=== PATIENT | female | born 1960 | race Caucasian/White ===

== ENCOUNTER → 2020-05-03 | Emergency (ER) | payer BC, MEDICAID ==
[~2020-05-03] VITALS: Ht 167.6 cm; Wt 77.1 kg
[2020-05-03 20:24] LABS: Basophils # (auto) 0 10 ^3/uL (0-0.2); Basophils % (auto) 0.5 % (0.0-2.0); Eosinophils # (auto) 0 10 ^3/uL (0-0.8); Hematocrit 44.5 % (36.0-46.0); Hemoglobin 15.2 g/dL (12.2-16.2); Lymphocytes # (auto) 0.4 10 ^3/uL (0.4-5.4); Lymphocytes % (auto) 4.1 % (10.0-50.0); Mean Corpuscular Hemoglobin 33.4 pg (28.0-32.0); Mean Corpuscular Hgb Conc. 34.1 g/dL (32.0-36.0); Mean Corpuscular Volume 97.8 fL (80.0-100.0); Monocytes # (auto) 0.8 10 ^3/uL (0-1.3); Monocytes % (auto) 8.8 % (0.0-12.0); Neutrophils # (auto) 7.6 10 ^3/uL (1.6-8.6); Neutrophils % (auto) 86.6 % (37.0-80.0); Platelet Count (auto) 142 10^3/uL (140-450); Red Blood Cells 4.54 10^6/uL (4.0-5.20); Red Cell Distribution Width 12.7 % (11.8-14.3); White Blood Cell 8.8 10^3/uL (4.4-10.8)
[2020-05-03 20:38] LABS: Albumin 3.6 g/dL (3.4-5.0); Calcium 8.7 mg/dL (8.5-10.1)
[2020-05-03 20:40] LABS: BUN/Creatinine Ratio 12.7
[2020-05-03 20:43] LABS: Bilirubin, Total 1.1 mg/dL (0.2-1.0); Total Protein 7.7 g/dL (6.4-8.2)
[2020-05-04 01:28] LABS: Urine Bacteria FEW /hpf (None Seen); Urine Blood Negative /uL (Negative); Urine Specific Gravity 1.007 (1.001-1.035); Urine WBC <1 /hpf (0 - 5)
[2020-05-04 01:39] LABS: Alcohol, Urine < 3.0 mg/dL (0-10); Amphetamine Screen, Urine NEGATIVE (NEGATIVE); Barbiturate Scree,Urine NEGATIVE (NEGATIVE); Benzodiazephine Screen, Urine NEGATIVE (NEGATIVE); Cannabinoid Screen, Urine POSITIVE (NEGATIVE); Cocaine Screen, Urine NEGATIVE (NEGATIVE); Phencyclidine Screen, Urine NEGATIVE (NEGATIVE)
[2020-05-04 01:46] LABS: Opiate Scree,Urine NEGATIVE (NEGATIVE)
[2020-05-04 02:00] VITALS: BP 139/97
== END | disposition home or self-care (01) ==
LOC: ER 17:43 → EDUNIT# 17:43 → EDBD 17:43
DX: G40.89 Other seizures (principal); E87.6 Hypokalemia; F19.10 Other psychoactive substance abuse, uncomplicated; R41.0 Disorientation, unspecified; I10 Essential (primary) hypertension
CPT/HCPCS: 36415; 70450; 80053; 80307; 80320; 81001; 85025; 93005

== ENCOUNTER 2022-11-07 09:44 | Emergency (ER) | payer MEDICAID ==
[~2022-11-07] VITALS: Ht 160 cm; Wt 63.8 kg
[2022-11-07 11:01] VITALS: BP 103/71
[2022-11-07] MEDS ORDERED: KETOROLAC TROMETH 60MG/2ML VIAL IM ONE (11:15)
== END 2022-11-07 11:23 | disposition home or self-care (01) ==
LOC: ER 09:44
DX: M54.50 Low back pain, unspecified (principal); G89.29 Other chronic pain; I10 Essential (primary) hypertension; Z88.6 Allergy status to analgesic agent
CPT/HCPCS: 96372; 99283; J1885

== ENCOUNTER 2023-12-09 14:32 | Emergency (ER) | payer MEDICAID ==
[2023-12-09] MEDS: SODIUM CHLORIDE 0.9% 1,000 ML IVB ONE (15:03)
[2023-12-09] MEDS: LORazepam 2MG/ML-1ML VIAL IV ONE (15:03)
[2023-12-09 15:10] VITALS: PULSE 108; RESP 21; TEMP 97.4; O2SAT 92
[2023-12-09 15:12] LABS: Basophils # (auto) 0.2 10 ^3/uL (0-0.2); Basophils % (auto) 1.1 % (0.0-2.0); Eosinophils # (auto) 0.1 10 ^3/uL (0-0.8); Eosinophils % (auto) 0.4 % (0.0-7.0); Hematocrit 50.6 % (36.0-46.0); Hemoglobin 16.6 g/dL (12.2-16.2); Lymphocytes # (auto) 4.3 10 ^3/uL (0.4-5.4); Lymphocytes % (auto) 29.9 % (10.0-50.0); Mean Corpuscular Hemoglobin 32.4 pg (28.0-32.0); Mean Corpuscular Hgb Conc. 32.8 g/dL (32.0-36.0); Mean Corpuscular Volume 98.9 fL (80.0-100.0); Monocytes # (auto) 1.1 10 ^3/uL (0-1.3); Monocytes % (auto) 7.6 % (0.0-12.0); Neutrophils # (auto) 8.7 10 ^3/uL (1.6-8.6); Red Blood Cells 5.12 10^6/uL (4.0-5.20); Red Cell Distribution Width 13.2 % (11.8-14.3); White Blood Cell 14.2 10^3/uL (4.4-10.8)
[2023-12-09 15:26] LABS: Alanine Aminotransferase 31 U/L (7-40); Albumin 4.6 g/dL (3.2-4.8); Alkaline Phosphatase 83 U/L (46-116); Anion Gap 16 (5-15); Aspartate Aminotransferase 53 U/L (13-40); BUN/Creatinine Ratio 9.7 (10.0-20.0); Blood Urea Nitrogen 7 mg/dL (9-23); Calcium 8.8 mg/dL (8.5-10.1); Carbon Dioxide 20 mmol/L (20-30); Chloride 111 mmol/L (98-107); Glucose 110 mg/dL (74-106); Potassium 4.6 mmol/L (3.5-5.1); Sodium 147 mmol/L (136-145)
[2023-12-09 15:27] LABS: Bilirubin, Total 0.3 mg/dL (0.2-1.0); Total Protein 7.3 g/dL (5.7-8.2)
[2023-12-09 15:47] LABS: Blood Alcohol 474.5 mg/dL (<10)
[2023-12-09 17:51] LABS: Urine Bacteria MOD /hpf (None Seen); Urine Blood Negative /uL (Negative); Urine Clarity HAZY (Clear); Urine Color Yellow (Yellow); Urine Mucus FEW (None Seen); Urine Protein, UAD 1+ (Negative); Urine Urobilinogen Normal (Negative); Urine WBC 44 /hpf (0 - 5); Urine pH 5.5 (5.0-8.0)
[2023-12-09 17:59] LABS: Amphetamine Screen, Urine Neg (NEGATIVE); Barbiturate Scree,Urine Neg (NEGATIVE); Benzodiazephine Screen, Urine Neg (NEGATIVE); Cocaine Screen, Urine Neg (NEGATIVE); Opiate Scree,Urine Neg (NEGATIVE)
[2023-12-09 18:00] LABS: Cannabinoid Screen, Urine Pos (NEGATIVE); Phencyclidine Screen, Urine Neg (NEGATIVE)
[2023-12-09 19:30] VITALS: PULSE 119; RESP 18; O2SAT 99
[2023-12-09] MEDS: cefTRIAXone 1GM/50ML D5W 50 ML IV ONE (20:41)
[2023-12-10] VITALS: BP 124/71; PULSE 98; RESP 18; O2SAT 99
== END 2023-12-10 00:58 | disposition home or self-care (01) ==
LOC: EDBD 14:32 → ER 14:32
DX: R41.82 Altered mental status, unspecified (principal); I10 Essential (primary) hypertension; F10.129 Alcohol abuse with intoxication, unspecified; F12.10 Cannabis abuse, uncomplicated; Z79.899 Other long term (current) drug therapy; Z88.6 Allergy status to analgesic agent; Y90.8 Blood alcohol level of 240 mg/100 ml or more
CPT/HCPCS: 36415; 70450; 80053; 80307; 80320; 81001; 85025; 96361; 96365; 96375; 99285; J0696; J2060; J7030